=== PATIENT | female | born 1980 | race American Indian/Alaskan Native ===

== ENCOUNTER 2018-02-18 15:55 | Emergency (ER) | payer MEDICAID ==
[2018-02-18 16:15] VITALS: BP 132/87
== END 2018-02-18 21:15 | disposition left against medical advice (07) ==
LOC: ED 15:55
DX: T63.441A Toxic effect of venom of bees, accidental (unintentional), initial encounter (principal); Y92.89 Other specified places as the place of occurrence of the external cause; Z53.21 Procedure and treatment not carried out due to patient leaving prior to being seen by health care provider